=== PATIENT | male | born 1975 | race Caucasian/White ===

== ENCOUNTER 2022-09-15 11:32 | Emergency (ER) | payer OTHER ==
[2022-09-15 12:38] LABS: Absolute Lymphocytes (CBC) 1.8 K/uL (0.7-4.9); Hematocrit 44.4 % (39.6-49.0); Lymphocytes % 21.4 % (15.3-44.8); MCV 89.5 fL (80-100); MPV 9.5 fL (7.6-11.3); RBC Red Blood Cell Count 4.97 M/uL (4.33-5.43)
[2022-09-15 12:59] LABS: Specific Gravity 1.017 (1.005-1.030); Urine Bacteria <20 /HPF (<20); Urine Bilirubin NEGATIVE (Negative); Urine Blood Negative (Negative); Urine Clarity Turbid (Clear); Urine Color Light-Yellow (Yellow); Urine Glucose 1+ (Negative); Urine Protein TRACE (Negative); Urine RBC <5 /HPF (None Seen); Urine Urobilinogen Normal (Normal)
[2022-09-15 13:04] LABS: Albumin 3.4 g/dL (3.4-5.0); Bilirubin Direct 0.2 mg/dL (0-0.2); Bilirubin Indirect, Calculated 0.6 mg/dL (0.2-0.8); Bilirubin Total 0.8 mg/dL (0.2-1.0); Protein, Total 7.1 g/dL (6.4-8.2); Thyroid Stimulating Hormone 2.13 uIU/mL (0.358-3.740)
--- OUTSIDE RECORDS SUMMARY | 2022-09-15 13:28 | XMS REPORT | Continuity of Care Document ---
:1975 Author Organization [facility] t Address [address] [facility] [address] [place] [address] Care Team Providers Name Role Phone Balbir Tha Bloom Primary Care Physician Rocio Jacome MD Attending Clinician ROCIO JACOME Attending Clinician Unavailable Doctor Unassigned, [place] Attending Clinician Unavailable KACY YAÑEZ Attending Clinician Unavailable KACY YAÑEZ Attending Clinician Unavailable [facility] Attending Clinician Unavailable Kacy Yañez MD Attending Clinician JOSHUA IGLESIAS Attending Clinician Unavailable Only, Adc Test Attending Clinician Unavailable Joshua Iglesias MD Attending Clinician Rocio Jacome MD Admitting Clinician ROCIO JACOME Admitting Clinician Unavailable Payers Payer Name Policy Type Policy Number Effective Date Expiration Date S ource Problems Condition Condition Condition Status Onset Resolution Last Treating Co mments Source Name Details Category Date Date Treatment Clinician Date Foreign Foreign Disease Active Overview: Univ ers body of body of 5-11 Formatt[place] ity o f scalp, scalp, 00:00: g of this [place] initial initial 00 note Medical encounter encounter might be Br anch different from the original. Added automatic ally from request for surgery [id number] Allergies, Adverse Reactions, Alerts Allergy Allergy Status Severity Reaction(s) Onset Inactive Treating Comm ents Source Name Type Date Date Clinician PENICILL Drug Active Other-Cmnt Univ ers INS Class 4-25 ity of 00:00: [place] [facility] [place] Penicill Propensi Active Other - See "seizure s Univers ins ty to comments 4-25 " ity of adverse 00:00: [place] reaction 00 Medical s Branch Social History Social Habit Start Date Stop Date Quantity Comments Source Exposure to 2021-09-15 2021-09-25 Not sure [facility] SARS-CoV-2 00:00:00 15:35:00 [facility] (event) Branch Alcohol intake 2021-08-19 2021-08-19 Current University 00:00:00 00:00:00 non-drinker of [facility] alcohol [place] (finding) Tobacco use and 2017-08-04 2017-08-04 Never used Universit y of exposure 00:00:00 00:00:00 [facility] Sex Assigned At [birth year] Universit y of 00:00:00 00:00:00 [facility] Smoking Status Start Date Stop Date Source Never smoker [facility] Medications Ordered Filled Start Stop Current Ordering Indication Dosage Frequency Signature Comments Components Source Medication Medication Date Date Medication? Clinician (SIG) Name Name clindamycin Yes [id number] 900mg Univers in 5 % 5-25 ity of dextrose 14:00: [place] (CLEOCIN) 00 Medical 900 mg/50 Branch mL IV piggyback RTU 900 mg clindamycin Yes [id number] 900mg Univers in 5 % 5-25 ity of dextrose 14:00: [place] (CLEOCIN) 00 Medical 900 mg/50 Branch mL IV piggyback RTU 900 mg clindamycin Yes [id number] 900mg Univers in 5 % 5-25 ity of dextrose 14:00: [place] (CLEOCIN) 00 Medical 900 mg/50 Branch mL IV piggyback RTU 900 mg simvastatin Yes 20mg Take 20 mg Univers 20 mg 5-12 by mouth ity of tablet 00:00: daily. [address] simvastatin Yes 20mg Take 20 mg Univers 20 mg 5-12 by mouth ity of tablet 00:00: daily. [address] simvastatin Yes 20mg Take 20 mg Univers 20 mg 5-12 by mouth ity of tablet 00:00: daily. [place] 00 Medical Branch omeprazole Yes 1{capsu Take 1 Un [place] 40 mg 4-10 le} capsule by ity of capsule 00:00: mouth [place] 00 daily. Medical Branch omeprazole 2021-0 Yes 1{capsu Take 1 [place] 40 mg 4-10 le} capsule by ity of capsule 00:00: mouth [place] 00 daily. Medical Branch omeprazole 0 Yes 1{capsu Take 1 [place] 40 mg 4-10 le} capsule by ity of capsule 00:00: mouth [place] 00 daily. Medical Branch losartan-hy Yes 1{tbl} Take 1 [place] drochloroth 3-25 tablet by ity of iazide 00:00: mouth [place] 50-12.5 mg 00 daily. Medical per tablet Branch losartan-hy Yes 1{tbl} Take 1 [place] drochloroth 3-25 tablet by ity of iazide 00:00: mouth [place] 50-12.5 mg 00 daily. Medical per tablet Branch losartan-hy Yes 1{tbl} Take 1 [place] drochloroth 3-25 tablet by ity of iazide 00:00: mouth [place] 50-12.5 mg 00 daily. Medical per tablet Branch Immunizations Ordered Filled Immunization Date Status Comments [facility] e Immunization Name Name SARS-COV-2 COVID-19 2021-04-08 Completed Unive rsity of PFIZER VACCINE 00:00:00 [facility] SARS-COV-2 COVID-19 2021-04-08 Completed Unive rsity of PFIZER VACCINE 00:00:00 [facility] SARS-COV-2 COVID-19 2021-04-08 Completed Unive rsity of PFIZER VACCINE 00:00:00 [facility] SARS-COV-2 COVID-19 2020-06-20 Completed Unive rsity of ESTRELLA/J&J VACCINE 00:00:00 [facility] SARS-COV-2 COVID-19 2020-06-20 Completed Unive rsity of ESTRELLA/J&J VACCINE 00:00:00 [facility] SARS-COV-2 COVID-19 2020-06-20 Completed Unive rsity of ESTRELLA/J&J VACCINE 00:00:00 [facility] Vital Signs Vital Name Observation Time Observation Value Comments Source Systolic blood 2021-09-25 20:45:00 120 mm[Hg] Univer sity of pressure [facility] Diastolic blood 2021-09-25 20:45:00 80 mm[Hg] Unive rsity of pressure [facility] Heart rate 2021-09-25 20:45:00 106 /min Universi ty [facility] Body temperature 2021-09-25 20:45:00 36.22 [facility] Respiratory rate 2021-09-25 20:45:00 16 /min [facility] Body height 2021-09-25 20:45:00 175.3 cm Universi ty [facility] Body weight 2021-09-25 20:45:00 124.286 kg [facility] BMI 2021-09-25 20:45:00 40.46 kg/m2 [facility] Oxygen saturation in 2021-09-25 20:45:00 95 /min [facility] Arterial blood by [facility] Pulse oximetry Branch Procedures Procedure Date / Time Performing Clinician Source Performed INSURANCE CORRESPONDENCE 2021-08-22 05:01:00 Doctor Unassigned, [facility] [place] [facility] Encounters Start End Encounter Admission Attending Care Care Encounter Source Date/Time Date/Time Type Type Clinicians Facility Department ID 2021-09-25 2021-09-25 Office Ayaz [facility] [id number] Univers 15:45:00 15:46:30 Visit Rocio PERDOMO [id number] i [facility] [id number] Brittney CARO [phone] Pa dical [address] 2021-09-25 2021-09-25 Outpatient R AYAZ [facility] [id number] Univers 15:45:00 15:46:30 ROCIO reece [facility] 2021-09-25 2021-09-25 Outpatient Efrain JACOME [facility] [id number] Univers 15:45:00 15:45:00 ROCIO reece [facility] 2021-09-03 2021-09-03 [facility] [id number] Univers 10:53:00 12:53:00 Rocio PERDOMO [id number] i ty of [facility] [id number] [id number] [facility] 020 Branch 2021-09-03 2021-09-03 [facility] [id number] Univers 09:05:00 12:32:00 Encounter Rocio PERDOMO [id number] ity of [facility] [id number] [id number] [facility] 071 Branch 2021-09-03 2021-09-03 Outpatient R [facility] KARINA [id number] Univers 09:05:00 12:32:00 ROCIO reece [facility] 2021-09-03 2021-09-03 Orders Doctor LIEN [id number] Univers 00:00:00 00:00:00 Only Unassigned, TORI [id number] ity of [place] [id number] [place] as [id number] [facility] [address] [place] 2021-09-02 2021-09-02 Outpatient R [facility] [id number] Univers 09:30:00 09:30:00 ROCIO reece [facility] 2021-08-25 2021-08-25 Outpatient R [facility] [id number] Univers 14:12:34 23:59:00 ROCIO reece [facility] 2021-08-25 2021-08-25 [facility] [id number] Univers 14:12:34 23:59:00 Encounter Rocio PERDOMO [id number] ity of [facility] [id number] [id number] [facility] [address] [place] 2021-08-25 2021-08-25 [facility] [id number] Univers 00:00:00 00:00:00 Rocio GALLARDOLUIS ALBERTO [id number] i ty of [facility] [facility] [id number] PROF[place] [id number] Pa dical NAL [address] [place] [address] 2021-08-22 2021-08-22 Orders Doctor LIEN [id number] Univers 00:00:00 00:00:00 Only Unassigned, TORI [id number] ity of [place] [facility] [id number] Carlos as [id number] [address] 2021-08-19 2021-08-19 Outpatient R AYAZ [facility] [id number] Univers 14:00:00 15:34:55 ROCIO reece [facility] 2021-08-19 2021-08-19 Office Ayaz [facility] [id number] Univers 14:00:00 15:34:55 Visit Rocio PERDOMO [id number] i ty [facility] [id number] [phone] Pa dical NAL [address] [place] [address] 2021-07-15 2021-07-15 Orders Doctor EMMANUEL [id number] Univers 00:00:00 00:00:00 Only Unassigned, TORI [id number] ity of [place] [facility] [id number] [place] as [id number] [address] 2021-06-26 2021-06-26 Orders Doctor EMMANUEL [id number] Univers 00:00:00 00:00:00 Only Unassigned, TORI [id number] ity of [place] [facility] [id number] [place] as [id number] [address] 2021-02-06 2021-02-06 Outpatient R KACY YAÑEZ [facility] [id number] Univers 09:00:00 09:00:00 KACY YAÑEZ [facility] 2021-02-06 2021-02-06 Nurse Plastics [facility] 1.2 [id number] [id number] Univers 08:42:05 08:57:05 Visit Kacy Yañez 350.1.13. 10 it[facility] [id number] [facility] [id number] [facility] 193 Branch 2021-02-03 2021-02-03 Outpatient R HARRIS [facility] [id number] Univers 14:00:00 14:00:00 JOSHUA reece of [facility] 2021-02-03 2021-02-03 Laboratory Only, Adc Test [facility] [id number]. [id number] Univers 13:41:32 13:56:32 Only Joshua Iglesias [id number] ity of [place] [id number] [facility] [id number] [facility] 353 Branch 2021-02-03 2021-02-03 Orders Doctor LIEN [id number] Univers 00:00:00 00:00:00 Only Unassigned, TORI [id number] ity of [place] [facility] [id number] [place] as [id number] [facility] 009 Branch Results This patient has no known results.
--- NOTE | 2022-09-15 13:47 | EDPHYS ---
Physician Documentation [facility] Name: Macario Hernandez Age: 46 yrs Sex: Male : 1975 Arrival Date: 09/15/2022 Time: 11:32 Bed 9 Private MD: Levi Hernandez ED Physician Alon Crawford HPI: 09/15 12:20 This 46 yrs old Male presents to ER via Ambulatory with complaints of Swelling. rn 12:20 Pt reports swelling of hands/feet/legs. Began approx 2 weeks ago. 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 No hx of kidney/liver/heart problems. No fever. NO trauma. No hx of dvt/PE. . Onset: The symptoms/episode began/occurred 2 week(s) ago. Severity of symptoms: At their worst the symptoms were moderate in the emergency department the symptoms are unchanged. The patient has not experienced similar symptoms in the past. The patient has not recently seen a physician. Historical: - Allergies: 11:59 PENICILLINS; mb9 - Home Meds: 11:59 losartan oral 12.5 mg tablet [Active]; simvastatin 20 mg/5 mL (4 mg/mL) Oral suspension mb9 every evening [Active]; - PMHx: 11:59 Hypertensive disorder; mb9 - PSHx: 11:59 Brain shunt; mb9 - Immunization history:: Adult Immunizations up to date. - Social history:: Smoking status: Patient denies any tobacco usage or history of. - Family history:: not pertinent. - Hospitalizations: : No recent hospitalization is reported. ROS: 12:20 Constitutional: Negative for fever, chills, and weight loss, Eyes: Negative for injury, rn pain, redness, and discharge, Neck: Negative for injury, pain, and swelling, Cardiovascular: Negative for chest pain, palpitations Respiratory: Negative for shortness of breath, cough, wheezing, and pleuritic chest pain, Abdomen/GI: Negative for abdominal pain, nausea, vomiting, diarrhea, and constipation, MS/Extremity: Negative for injury and deformity, Skin: Negative for injury, rash, and discoloration, Neuro: Negative for headache, weakness, numbness, tingling, and seizure. Exam: 12:20 Constitutional: This is a well developed, well nourished patient who is awake, alert, rn and in no acute distress. Head/Face: Normocephalic, atraumatic. Cardiovascular: Regular rate and rhythm. No pulse deficits. Respiratory: No increased work of breathing, no retractions or nasal flaring. Abdomen/GI: Soft, non-tender Skin: Warm, dry MS/ Extremity: Pulses equal, no cyanosis. Neurovascular intact. Full, normal range of motion. Equal circumference. + pitting edema bilateral legs/feet/hands. Neuro: Awake and alert, GCS 15 14:57 ECG was reviewed by the Attending Physician. rn Vital Signs: 11:57 BP 154 / 97; Pulse 88; Resp 20; Temp 98.4; Pulse Ox 98% on R/A; Weight 90.72 kg; Height mb9 5 ft. 9 in. ; Pain 0/10; 13:43 BP 143 / 107; Pulse 90; Resp 18; Pulse Ox 99% on R/A; Pain 0/10; mb9 11:57 Body Mass Index 29.53 (90.72 kg, 175.26 cm) mb9 11:57 Pain Scale: Adult mb9 13:43 Pain Scale: Adult mb9 MDM: 11:40 Patient medically screened. rn 13:44 Differential Diagnosis edema, kidney problem, CHF, liver problem, nephritic syndrome, rn nephrotic syndrome. 13:45 Data reviewed: vital signs, nurses notes, lab test result(s), and as a result, I will web marketing intern patient. Counseling: I had a detailed discussion with the patient and/or guardian regarding: the historical points, exam findings, and any diagnostic results supporting the discharge/admit diagnosis, lab results, the need for outpatient follow up, to return to the emergency department if symptoms worsen or persist or if there are any questions or concerns that arise at home. Special discussion: I discussed with the patient/guardian in detail that at this point there is no indication for admission to the hospital. It is understood, however, that if the symptoms persist or worsen the patient needs to return immediately for re-evaluation. Based on the history and exam findings, there is no indication for further emergent testing or inpatient evaluation. I discussed with the patient/guardian the need to see the primary care provider for further evaluation of the symptoms. 09/15 11:47 Order name: CBC with Diff; Complete Time: 13:01 rn 09/15 11:47 Order name: Basic Metabolic Panel; Complete Time: 13:08 rn 09/15 11:47 Order name: Urinalysis w/ reflexes; Complete Time: 13:01 rn 09/15 11:47 Order name: LFT's; Complete Time: 13:08 rn 09/15 11:47 Order name: BNP; Complete Time: 13:08 rn 09/15 11:47 Order name: TSH; Complete Time: 13:08 rn 09/15 11:47 Order name: T4 Free; Complete Time: 13:08 rn 09/15 11:47 Order name: EKG; Complete Time: 11:47 rn 09/15 11:47 Order name: IV Start; Complete Time: 12:29 rn 09/15 11:47 Order name: EKG - Nurse/Tech; Complete Time: 12:39 rn EC:57 Rate is 84 beats/min. Rhythm is regular. QRS [place] is Normal. ME interval is normal. QRS rn interval is normal. QT interval is normal. No Q waves. T waves are Normal. No ST changes noted. Clinical impression: NSR w/ Non-specific ST/T Changes. Interpreted by me. Reviewed by me. Administered Medications: No medications were administered Disposition Summary: 09/15/22 13:46 Discharge Ordered Location: Home rn Problem: new rn Symptoms: are unchanged rn Condition: Stable rn Diagnosis - Generalized edema rn Followup: rn - With: Private Physician - When: As needed - Reason: Recheck today's complaints, Re-evaluation by your physician Discharge Instructions: - Discharge Summary Sheet rn - Edema rn Forms: - Medication Reconciliation Form rn - Thank You Letter rn - Antibiotic mba internship - Prescription Opioid Use rn - Work release form mb9 Prescriptions: - losartan 25 mg Oral tablet - take 1 tablet by ORAL route daily; 30 tablet; Refills: 0, Product Selection rn Permitted - Lasix 20 mg Oral Tablet - take 1 tablet by ORAL route every 12 hours for 3 days; 6 tablet; Refills: 0, rn Product Selection Permitted Signatures: Dispatcher [employer] Alon Syed MD MD rn Breneman, Mary Beth, RN RN mb9 Corrections: (The following items were deleted from the chart) 12:01 11:59 Home Meds: losartan oral 12.5; mb9 mb9
--- NOTE | 2022-09-15 13:47 | ER ---
Nurse's Notes [facility] Name: Macario Hernandez Age: 46 yrs Sex: Male : 1975 Arrival Date: 09/15/2022 Time: 11:32 Bed 9 Private MD: Levi Hernandez Diagnosis: Generalized edema Presentation: 09/15 11:57 Chief complaint: Patient states: "1 week ago my legs, hands, and face started swelling. mb9 This happened in the past and I was supposed to get further studies done but the provider didn't take my insurance so I never got it looked at again." Pt denies SOB, pain, and chest pain. Coronavirus screen: Vaccine status: Patient reports receiving the 2nd dose of the covid vaccine. Ebola Screen: No symptoms or risks identified at this time. Initial Sepsis Screen: Does the patient meet any 2 criteria? No. Patient's initial sepsis screen is negative. Does the patient have a suspected source of infection? No. Patient's initial sepsis screen is negative. Risk Assessment: Do you want to hurt yourself or someone else? Patient reports no desire to harm self or others. Onset of symptoms was 2022. 11:57 Method Of Arrival: Ambulatory mb9 11:57 Acuity: DONNA 3 mb9 Triage Assessment: 12:01 General: Appears in no apparent distress. Behavior is calm, cooperative. Pain: Denies mb9 pain. Neuro: [place] Agitation-Sedation Scale (RASS): 0 - Alert and Calm Level of Consciousness is awake, alert, obeys commands, Oriented to person, place, time, situation, Appropriate for age. Cardiovascular: Patient's skin is warm and dry. Respiratory: Airway is patent Respiratory effort is even, unlabored, Respiratory pattern is regular, symmetrical. Derm: Skin is pink, warm \\T\\ dry. Musculoskeletal: Range of motion: intact in all extremities, Swelling present in right hand, left hand, right leg and left leg. Historical: - Allergies: 11:59 PENICILLINS; mb9 - Home Meds: 11:59 losartan oral 12.5 mg tablet [Active]; simvastatin 20 mg/5 mL (4 mg/mL) Oral suspension mb9 every evening [Active]; - PMHx: 11:59 Hypertensive disorder; mb9 - PSHx: 11:59 Brain shunt; mb9 - Immunization history:: Adult Immunizations up to date. - Social history:: Smoking status: Patient denies any tobacco usage or history of. - Family history:: not pertinent. - Hospitalizations: : No recent hospitalization is reported. Screenin:39 [facility] ED Fall Risk Assessment (Adult) History of falling in the last 3 months, mb9 including since admission No falls in past 3 months (0 pts) Confusion or Disorientation No (0 pts) Intoxicated or Sedated No (0 pts) Impaired Gait No (0 pts) Mobility Assist Device Used No (0 pt) Altered Elimination No (0 pt) Score/Fall Risk Level 0 - 2 = Low Risk Oriented to surroundings, Maintained a safe environment, Educated pt \\T\\ family on fall prevention, incl call for assistance when getting out of bed. Abuse screen: Denies threats or abuse. Nutritional screening: No deficits noted. Tuberculosis screening: No symptoms or risk factors identified. Assessment: 12:06 Reassessment: see triage assessment. mb9 13:44 Reassessment: No changes from previously documented assessment. Patient and/or family mb9 updated on plan of care and expected duration. Pain level reassessed. Patient is alert, oriented x 3, equal unlabored respirations, skin warm/dry/pink. Vital Signs: 11:57 BP 154 / 97; Pulse 88; Resp 20; Temp 98.4; Pulse Ox 98% on R/A; Weight 90.72 kg; Height mb9 5 ft. 9 in. ; Pain 0/10; 13:43 BP 143 / 107; Pulse 90; Resp 18; Pulse Ox 99% on R/A; Pain 0/10; mb9 11:57 Body Mass Index 29.53 (90.72 kg, 175.26 cm) mb9 11:57 Pain Scale: Adult mb9 13:43 Pain Scale: Adult mb9 ED Course: 11:37 Patient arrived in ED. mr 11:37 Levi Hernandez is Private Physician. mr 11:40 Alon Crawford MD is Attending Physician. rn 11:57 Arm band placed on. mb9 11:59 Triage completed. mb9 12:06 Adrienne Alvarenga, RN is Primary Nurse. mb9 12:29 T4 Free Sent. mb9 12:29 TSH Sent. mb9 12:29 BNP Sent. mb9 12:29 LFT's Sent. mb9 12:29 Basic Metabolic Panel Sent. mb9 12:29 CBC with Diff Sent. mb9 12:38 EKG done, by ED staff, reviewed by Alon Crawford MD. Inserted saline lock: 20 gauge in mb9 left antecubital area, using aseptic technique. 12:39 Placed in gown. Bed in low position. Call light in reach. Side rails up X 1. Client mb9 placed on continuous cardiac and pulse oximetry monitoring. NIBP monitoring applied. property assessment monitor on. 12:39 No provider procedures requiring assistance completed. mb9 12:39 Urinalysis w/ reflexes Sent. mb9 14:07 IV discontinued, intact, bleeding controlled, No redness/swelling at site. Pressure mb9 dressing applied. Administered Medications: No medications were administered Medication: 12:02 VIS not applicable for this client. mb9 Outcome: 13:46 Discharge ordered by . rn 14:06 Discharged to home ambulatory. mb9 14:06 Condition: stable 14:06 Discharge instructions given to patient, Instructed on discharge instructions, follow up and referral plans. Demonstrated understanding of instructions, follow-up care, medications, Prescriptions given X 2. 14:07 Patient left the ED. mb9 Signatures: Adrienne Diaz Roman, MD MD rn Breneman, Mary Beth, RN RN mb9 Corrections: (The following items were deleted from the chart) 12:01 11:59 Home Meds: losartan oral 12.5; mb9 mb9
[2022-09-15 14:28] VITALS: TEMP 98.4
[2022-09-15 14:34] VITALS: BP 143/107; O2SAT 99
--- NOTE | 2022-09-16 07:17 | EKG ---
Test Date: 2022-09-15 Test Time: 12:35:09 Flash Developer: MB MEASUREMENT RESULTS: Intervals: Rate: 84 WY: 132 QRSD: 96 QT: 374 QTc: 441 [place]: P: 37 W[place]: 132 QRS: 84 T: 44 INTERPRETIVE STATEMENTS: Normal sinus rhythm Possible Anterior infarct, age undetermined Abnormal ECG No previous ECG available for comparison Electronically Signed On 09-16-22 07:14:10 CDT by Maged Watson
== END 2022-09-15 14:07 | disposition home or self-care (01) ==
LOC: ER 11:32
DX: R60.1 Generalized edema (principal); I10 Essential (primary) hypertension; Z88.0 Allergy status to penicillin
CPT/HCPCS: 36415; 80048; 80076; 81001; 83880; 84439; 84443; 85025; 93005; 99284